=== PATIENT | male | born 1945 | race African-American/Black ===

== ENCOUNTER 2017-01-03 07:37 | Day surgery (SDC) | payer MEDICARE, OTHER ==
[~2017-01-03] VITALS: Ht 172.7 cm; Wt 86.2 kg
[~2017-01-03 07:37] MED LIST: AMLODIPINE10 MG OR; AMLODIPINE5 MG PO; ARTIF TEARS OU; CHLORTHALID25 MG PO; CIPRO500 MG OR; CRESTOR10 MG PO; CRESTOR20 MG PO; EC ASPIRIN325 MG PO; FLEET ENEMA RE; FLEXERIL OR; FOLIC ACID1 MG OR; GABAPENTIN300 MG PO; GABAPENTIN400 MG PO; GABAPENTIN600 MG OR; HUMULIN N1 ML SC; K-TAB20 MEQ PO; KEFLEX500 MG OR; LIPITOR80 M1 PO; LISINOPRIL20 MG PO; LISINOPRIL40 MG PO; MELOXICAM7.5 MG OR; MELOXICAM7.5 MG PO; MIRALAX3350 N1 PO; NEURONTIN600 MG PO; NOVOLIN 70/30 SC; POT CHLORIDE10 ME1 PO; SIMVASTATIN80 MG OR; TERAZOSIN10 MG OR; TERAZOSIN5 MG PO; TRAMADOL HCL50 MG PO; TREXALL10 MG OR; ULTRAM50 M1 OR; ULTRAM50 M1 PO; VITAMIN D31000 UNI1 PO; ZESTRIL40 MG OR; ZOFRAN4 MG/TAB PO
[2017-01-03 10:27] VITALS: BP 133/77
== END 2017-01-03 10:30 | disposition home or self-care (01) ==
LOC: ENDO 07:37
PROVIDERS: ATTEND Surgery
PROC: 0DJD8ZZ Inspection of Lower Intestinal Tract, Via Natural or Artificial Opening Endoscopic (ICD-10-PCS; principal; 2017-01-03)
DX: Z12.11 Encounter for screening for malignant neoplasm of colon (principal); Z86.010 Personal history of colon polyps

== ENCOUNTER 2019-06-05 17:47 | Emergency (ER) | payer MEDICARE ==
[2019-06-05] MEDS ORDERED: SILVADENE1 % EX (18:42)
[2019-06-05 18:55] VITALS: BP 165/85
== END 2019-06-05 18:55 | disposition home or self-care (01) ==
LOC: ED 17:47
DX: T60.3X1A Toxic effect of herbicides and fungicides, accidental (unintentional), initial encounter (principal); T22.611A Corrosion of second degree of right forearm, initial encounter; I10 Essential (primary) hypertension; E11.9 Type 2 diabetes mellitus without complications; Z86.73 Personal history of transient ischemic attack (TIA), and cerebral infarction without residual deficits

== ENCOUNTER 2020-01-10 09:38 | Emergency (ER) | payer OTHER, MEDICARE ==
[~2020-01-10] VITALS: Ht 172.7 cm; Wt 77.2 kg
[~2020-01-10 09:38] MED LIST changes: +SILVADENE1 % EX
[2020-01-10 10:59] LABS: URINE BILIRUBIN - DIPSTICK NEGATIVE (NEGATIVE); URINE BLOOD DIPSTICK NEGATIVE (NEGATIVE); URINE COLOR YELLOW; URINE GLUCOSE - DIPSTICK NEGATIVE (NEGATIVE); URINE KETONE NEGATIVE (NEGATIVE); URINE LEUK ESTERASE SMALL (NEGATIVE); URINE NITRITE - DIPSTICK NEGATIVE (Negative); URINE PROTEIN - DIPSTICK TRACE mg/dL (NEG-TRACE); URINE UROBILINOGEN - DIPSTICK 0.2 E.U./dL (0.2)
[2020-01-10 11:00] LABS: URINE WBC 20-50 WBC/hpf (0-5)
[2020-01-10 11:01] LABS: URINE BACTERIA FEW hpf; URINE EPITHELIAL CELLS FEW EPI/hpf (0-FEW)
[2020-01-10] MEDS ORDERED: CIPROFLOXACN500 MG PO (11:37)
[2020-01-10 11:49] VITALS: BP 148/83
== END 2020-01-10 11:49 | disposition home or self-care (01) | DRG 690 ==
LOC: ED 09:38
PROVIDERS: Emergency Medicine
DX: N39.0 Urinary tract infection, site not specified (principal); I10 Essential (primary) hypertension; E11.9 Type 2 diabetes mellitus without complications; Z20.2 Contact with and (suspected) exposure to infections with a predominantly sexual mode of transmission; Z86.73 Personal history of transient ischemic attack (TIA), and cerebral infarction without residual deficits

== ENCOUNTER 2020-02-22 20:10 | Emergency (ER) | payer OTHER, MEDICARE ==
[~2020-02-22] VITALS: Ht 172.7 cm; Wt 77.0 kg
[~2020-02-22 20:10] MED LIST changes: +CIPROFLOXACN500 MG PO
[2020-02-22 21:38] LABS: IMMATURE GRANULOCYTES 0.4 % (0.0-5.0); MEAN CELL VOLUME 87.7 fL CALC (80.0-100.0); MEAN CORPUSCULAR HGB 27.8 pG CALC (26.0-32.0); MEAN CORPUSCULAR HGB CONC 31.8 g/dL CAL (32.0-36.0); NEUT# 7.76 thou/uL (1.82-7.42); RED BLOOD COUNT 3.16 mill/uL (4.70-6.10); RED CELL DISTRI WIDTH 13.3 % (11.5-15.5)
[2020-02-22 21:39] LABS: ALBUMIN 3.6 g/dL (3.2-5.0); TOTAL PROTEIN 6.4 g/dL (6.3-8.2)
[2020-02-22 21:42] LABS: HEMATOCRIT 27.7 % (39.0-50.0); HEMOGLOBIN 8.8 g/dl (14.0-18.0)
[2020-02-22 21:44] LABS: BILIRUBIN, TOTAL 0.8 mg/dL (0.0-1.4); POTASSIUM 4.6 mmol/l (3.5-5.1)
[2020-02-22] MEDS ORDERED: GABAPENTIN100 MG PO (21:52)
[2020-02-22] MEDS ORDERED: CIALIS5 MG PO (21:53)
[2020-02-22] MEDS ORDERED: CALCIUM500 M5 PO (21:54)
[2020-02-22] MEDS ORDERED: TERAZOSIN5 MG PO (21:54)
[2020-02-22] MEDS ORDERED: K-TAB20 MEQ PO (21:55)
[2020-02-22] MEDS ORDERED: HYDRALAZINE50 MG PO (21:56)
[2020-02-22] MEDS ORDERED: LIPITOR80 M1 PO (21:56)
[2020-02-22] MEDS ORDERED: CORRECTOL100 MG PO (21:57)
[2020-02-22] MEDS ORDERED: CINACALCET HYDR30 MG PO (21:58)
[2020-02-22] MEDS ORDERED: ASPIRIN81 MG PO (21:58)
[2020-02-22] MEDS ORDERED: AMLODIPINE BESY10 MG PO (21:59)
[2020-02-22] MEDS ORDERED: TRAMADOL HCL50 MG PO (22:00)
[2020-02-22 22:09] LABS: TSH, 3RD GENERATION 1.1 uIU/mL (0.47 - 4.68)
[2020-02-22] MEDS ORDERED: TYLENOL # 31 TA1 PO (22:23)
[2020-02-22 22:40] VITALS: BP 152/72
== END 2020-02-22 23:03 | disposition home or self-care (01) | DRG 554 ==
LOC: ED 20:10
PROVIDERS: Family Medicine
DX: M89.49 Other hypertrophic osteoarthropathy, multiple sites (principal); E83.51 Hypocalcemia; D64.9 Anemia, unspecified; I10 Essential (primary) hypertension; E11.9 Type 2 diabetes mellitus without complications; Z86.73 Personal history of transient ischemic attack (TIA), and cerebral infarction without residual deficits; Z98.890 Other specified postprocedural states

== ENCOUNTER 2020-05-29 07:44 | Emergency (ER) | payer OTHER, MEDICARE ==
[~2020-05-29] VITALS: Ht 172.7 cm; Wt 90.0 kg
[~2020-05-29 07:44] MED LIST changes: +AMLODIPINE BESY10 MG PO; +ASPIRIN81 MG PO; +CALCIUM500 M5 PO; +CIALIS5 MG PO; +CINACALCET HYDR30 MG PO; +CORRECTOL100 MG PO; +GABAPENTIN100 MG PO; +HYDRALAZINE50 MG PO; +TYLENOL # 31 TA1 PO
[2020-05-29 07:50] VITALS: BP 163/74
[2020-05-29] MEDS ORDERED: FLEXERIL5 MG PO (09:04)
[2020-05-29] MEDS ORDERED: ULTRAM50 MG PO (09:04)
== END 2020-05-29 09:18 | disposition home or self-care (01) | DRG 552 ==
LOC: ED 07:44
DX: S16.1XXA Strain of muscle, fascia and tendon at neck level, initial encounter (principal); I69.998 Other sequelae following unspecified cerebrovascular disease; R20.2 Paresthesia of skin; I10 Essential (primary) hypertension; E11.9 Type 2 diabetes mellitus without complications; X58.XXXA Exposure to other specified factors, initial encounter

== ENCOUNTER 2020-08-25 10:04 | Observation (INO) | payer OTHER, MEDICARE ==
[~2020-08-25] VITALS: Ht 172.7 cm; Wt 82.0 kg
[2020-08-25] VITALS (11 sets, daily range): BP systolic 140–215; BP diastolic 80–95
[~2020-08-25 10:04] MED LIST changes: +FLEXERIL5 MG PO; +ULTRAM50 MG PO
--- NOTE | 2020-08-25 10:10 | NUR ---
TO ROOM VIA WHEELCHAIR, ACCOMPANIED BY .
[2020-08-25 10:49] LABS: HEMATOCRIT 33.4 % (39.0-50.0); HEMOGLOBIN 10.5 g/dl (14.0-18.0); IMMATURE GRANULOCYTES 0.2 % (0.0-5.0); MEAN CELL VOLUME 87.2 fL CALC (80.0-100.0); MEAN CORPUSCULAR HGB 27.4 pG CALC (26.0-32.0); MEAN CORPUSCULAR HGB CONC 31.4 g/dL CAL (32.0-36.0); NEUT# 7.61 thou/uL (1.82-7.42); RED BLOOD COUNT 3.83 mill/uL (4.70-6.10); RED CELL DISTRI WIDTH 13.5 % (11.5-15.5)
--- NOTE | 2020-08-25 11:00 | NUR ---
PT ARRIVED BACK FROM CT SCAN AOX3, NIH 1, NO DISTRESS NOTED, RESTING IN BED AND EDUCATED ON SIGNS AND SYMPTOMS TO REPORT, CALL LIGHT AT BEDSIDE
[2020-08-25 11:36] LABS: INTERNATIONAL NORMALIZED RATIO 1.1 RATIO (0.7-1.3)
[2020-08-25 11:39] LABS: ALBUMIN 3.6 g/dL (3.2-5.0); BILIRUBIN, TOTAL 0.8 mg/dL (0.0-1.4); CREATININE 2.1 mg/dL (0.7-1.3); TOTAL PROTEIN 6.7 g/dL (6.3-8.2)
[2020-08-25 11:45] LABS: POTASSIUM 3.6 mmol/l (3.5-5.1)
--- NOTE | 2020-08-25 12:10 | NUR ---
PT RESTING AND ALSO EDUCATED ON ADMISSION
[2020-08-25 12:32] LABS: URINE BILIRUBIN - DIPSTICK NEGATIVE (NEGATIVE); URINE BLOOD DIPSTICK NEGATIVE (NEGATIVE); URINE COLOR YELLOW; URINE GLUCOSE - DIPSTICK NEGATIVE (NEGATIVE); URINE KETONE NEGATIVE (NEGATIVE); URINE LEUK ESTERASE NEGATIVE (NEGATIVE); URINE PROTEIN - DIPSTICK 100 mg/dL (NEG-TRACE); URINE SPECIFIC GRAVITY 1.015; URINE UROBILINOGEN - DIPSTICK 0.2 E.U./dL (0.2)
[2020-08-25 12:35] LABS: URINE NITRITE - DIPSTICK NEGATIVE (Negative)
[2020-08-25] MEDS ORDERED: LIPITOR40 M1 PO (12:43)
[2020-08-25] MEDS ORDERED: GABAPENTIN100 MG PO (12:44)
[2020-08-25] MEDS ORDERED: METOPROL TAR25 MG PO (12:45)
[2020-08-25] MEDS ORDERED: HYDRALAZINE50 MG PO (12:46)
[2020-08-25] MEDS ORDERED: POTASSI19 XX (12:46)
[2020-08-25] MEDS ORDERED: TERAZOSIN5 MG PO (12:46)
--- NOTE | 2020-08-25 14:10 | NUR ---
PT ARRIVED TO ICU FROM THE ER WITH ER NURSE. PT ABLE TO SELF AMBULATE WITH CANE. PT VITALS TAKING BLOOD PRESSURE ELEVATED. NOTIFIED DR. ROBERTS PERCAUTIONS IN PLACE. WILL CONTINUE TO MONITOR.
--- NOTE | 2020-08-25 16:11 | NUR ---
PT IS STILL HAVING HIGH BLOOD PRESSURE PROVIDED PT WITH MEDICATIONS ADD TO HIGH MANAGE BLOOD PRESSURE WILL CONTINUE TO MONITOR WILL GIVE IV MED PRN IF NEED. FALL PERCAUTIONS STILL IN PLACE. PT WAS EDUCATED ON PLAN AND NEW MEDICATION WITH FAMILY PRESENT.
--- NOTE | 2020-08-25 17:46 | NUR ---
PT ARRIVED BACK FROM MRI BLOOD PRESSURE IS STILL ELEVATED PRN IV HYDRALAZINE BEFORE MRI EXAM. WILL CONTINUE TO MONITOR FOR AFFECT OF MEDICATION. FALL PERCAUTIONS IN PLACE. CALL LIGHT PADMINI MEZA.
--- NOTE | 2020-08-25 19:02 | NUR ---
PT AMBULATED TO THE BATHROOM WHEN HE STARTED TO FEEL DIZZY. BEFORE GETTING BACK UP PT STARTED VOMITING. RN ASKED FOR HELP TO HELP PT TO BED. BLOOD PRESSURE IS STILL ELEVATED. PROVIDER NOTIFIED. SHIFT CHANGE REPORT PROVIDED TO ON COMING RN. NEW ORDERED PROVIDED TO ON COMING RN.
--- NOTE | 2020-08-25 19:12 | NUR ---
RECEIVED REPORT. PT BEDRESTING. TALKING ON PHONE. B/P MACHINE NOT WORKING SO MANUAL B/P BEING TAKEN
--- NOTE | 2020-08-25 19:35 | NUR ---
REPORT INCLUDED SBP >200. RAILROAD DINING CAR STEWARDESS CALLED FOR RX. MANUAL B/P (BY ME) 192/90. LOPRESSOR 5MG SLOW IVP GIVEN-TOLERATED WELL. DENIES NAUSEA AT THIS TIOME. SAID WAS NAUSEATED WHEN DINNER TRAY HERE, BUT IS NO LONGER AND DECLINED ZOFRAN. IV HL. DENIES H/A. NIHSS 0
--- NOTE | 2020-08-25 20:30 | NUR ---
B/P SLIGHTLY HIGHER. HS MEDICATION GIEVN AT THIS TIME
--- NOTE | 2020-08-25 21:35 | NUR ---
SBP REMAINS >180. MEDICATION GIVEN RX. BEDRESTING WITH EYES CLOSED. RESP EVEN AND NONLABORED.
--- NOTE | 2020-08-25 22:15 | NUR ---
BEDRESTING. NIHSS 0.
[2020-08-26] VITALS (16 sets, daily range): BP systolic 148–186; BP diastolic 60–92
--- NOTE | 2020-08-26 | NUR ---
BEDRESTING. NO DISTRESS NOTED
--- NOTE | 2020-08-26 01:30 | NUR ---
N/C VOICED. DOZING AT THIS TIME. SBP BETEWWN 140 AND 182 MOST OF NIGHT
--- NOTE | 2020-08-26 02:53 | NUR ---
PT NOTED TO HAVE SECOND DEGREE TYPE 2 RHYTHM (WHILE HAVING A PERIOD OF NAUSEA AND VOMITING) FROM [id number]. CURRENTLY HAS RESUMED SR WITH 1ST DEGREE HEART BLOCK
--- NOTE | 2020-08-26 02:58 | NUR ---
YOSI OLIVEROS NOTIFIED OF THE CHANGE OF RHYTHM. NO NEW ORDERS AT THIS TIME
--- NOTE | 2020-08-26 04:26 | NUR ---
LAB HERE FOR BLOOD DRAW RX
[2020-08-26 04:54] LABS: HEMATOCRIT 37.2 % (39.0-50.0); HEMOGLOBIN 11.7 g/dl (14.0-18.0); MEAN CELL VOLUME 86.3 fL CALC (80.0-100.0); MEAN CORPUSCULAR HGB 27.1 pG CALC (26.0-32.0); MEAN CORPUSCULAR HGB CONC 31.5 g/dL CAL (32.0-36.0); RED BLOOD COUNT 4.31 mill/uL (4.70-6.10); RED CELL DISTRI WIDTH 13.5 % (11.5-15.5)
[2020-08-26 05:14] LABS: CHOLESTEROL HDL RATIO 2.9 (<4.4 (CALC)); CREATININE 1.9 mg/dL (0.7-1.3); POTASSIUM 3.3 mmol/l (3.5-5.1)
--- NOTE | 2020-08-26 06:08 | NUR ---
BEDRESTING. NO FURTHER RHYTHM CHANGE NOTED. RESP EVEN AND NONLABORED. NO DISTRESS NOTED
--- NOTE | 2020-08-26 06:45 | NUR ---
REPORT RECEIVED FROM DOUG ALEXANDER. CARE ASSUMED.
--- NOTE | 2020-08-26 06:55 | NUR ---
REPORT GIVEN TO BENJAMIN ECHEVARRIA. BEDRESTING
--- NOTE | 2020-08-26 07:40 | NUR ---
PT RESTING IN BED WITH EYES CLOSED. PT AROUSES TO VERBAL STIMULI. PT IS ALERT AND ORIENTED X3. SHIFT ASSESSMENT COMPLETED AT THIS TIME. IV PATENT X1. CALL LIGHT IN REACH. WILL CONTINUE TO MONITOR. NOTIFIED DR TEJEDA AND DR MAGANA OF IRREGULAR RHYTHM. NEW ORDERS RECEIVED.
--- NOTE | 2020-08-26 08:33 | NUR ---
DR TEJEDA AND DR MAGANA BOTH UPDATED ON LAB VALUES AND NEW ORDERS CARRIED OUT.
--- NOTE | 2020-08-26 09:01 | NUR ---
DR TEJEDA INTO SEE PATIENT AND DISCUSS PLAN OF CARE
--- NOTE | 2020-08-26 09:15 | NUR ---
Per discussion with RN, Kristy Spangler and Dr. Stout speech therapy order to be canceled.
--- NOTE | 2020-08-26 09:15 | NUR ---
DR MORGAN PLACED CALL TO DR FAIRBANKS WHO ACCEPTS PT FOR TRANSFER WILL PHONE [facility] FOR [facility]
--- NOTE | 2020-08-26 09:35 | NUR ---
PHONED [facility]. TRANSFER INITITATED. ALL INFO GIVEN. FACE SHEET FAXED, H&P FAXED, ORDER FAXED PER REQUEST.
--- NOTE | 2020-08-26 10:20 | NUR ---
PT EXTUBATED BY RT AT THIS TIME. OG PULLED BY RT AT THIS TIME WELL. PT TOLERATED WELL. VSS REMANS STABLE
--- NOTE | 2020-08-26 10:38 | NUR ---
PT RESTING IN BED AT THIS TIME. NO COMPLAINTS VOICED. NO DISTRESS NOTED. CALL LIGHT IN REACH. WILL CONTINUE TO MONITOR.
--- NOTE | 2020-08-26 12:00 | NUR ---
PT SITTING UP IN BED EATING LUNCH AND WATHING TV. CALL LIGHT IN REACH. WILL CONTINUE TO MONITOR.
--- NOTE | 2020-08-26 13:35 | NUR ---
rt at bedside for ekg. lab at bedside for stat troponin. ekg sent to dr lowery.
--- NOTE | 2020-08-26 14:06 | NUR ---
PT RESTING IN BED WATCHING TV. 2ND IV POTASSIUM INFUSING. SISTER AT BEDSIDE VISITING. CALL LIGHT IN REACH. WILL CONTINUE TO MONITOR.
--- NOTE | 2020-08-26 14:16 | NUR ---
DR TEJEDA NOTIFIED OF RESULTS OF TROPONIN
--- NOTE | 2020-08-26 16:00 | NUR ---
PT RESTING IN BED AWAKE AND WATCHING TV. RESP ARE EVEN AND UNLABORED. NO DISTRESS NOTED. CALL LIGHT IN REACH. WILL CONTINUE TO MONITOR.
--- NOTE | 2020-08-26 16:12 | NUR ---
melania called from [facility] transfer center for updated vital signs. still awaiting bed assignment
--- NOTE | 2020-08-26 18:07 | NUR ---
pt sitting up in bed watching tv. davina with [facility] phoned with bed assignment [phone] at [facility]. veronica phoned for transport. [facility]a [facility] patient notified. phoned pts sister as well with update.
--- NOTE | 2020-08-26 18:28 | NUR ---
REPORT CALLED TO MISHEL AT [facility] [phone].
--- NOTE | 2020-08-26 18:50 | NUR ---
[facility] HERE FOR TRANSPORT TO [facility] PT [facility]IC[facility]. PT ALERT. COOPERATIVE. PT USED URINAL PRIOR TO DEPARTURE AND AMBULATED 5 FEET TO STRETCHER. ALL BELONGINGS (INCLUDING SHOES, CLOTHES, CANE AND MEDICATION) WENT WITH PATIENT
--- NOTE | 2020-08-26 19:10 | NUR ---
D/C/TRANSFER TO [facility] VIA [facility] AT THIS TIME. PT THANKED STAFF FOR CARE
== END 2020-08-26 19:10 | DRG 149 ==
LOC: ED 10:04 → ED-I 11:35 → ED 12:22 → ICU 12:23
PROVIDERS: Family Medicine; ADMIT Internal Medicine; ATTEND Internal Medicine
DX: R42 Dizziness and giddiness (principal); N17.9 Acute kidney failure, unspecified; R11.0 Nausea; I49.5 Sick sinus syndrome; I12.9 Hypertensive chronic kidney disease with stage 1 through stage 4 chronic kidney disease, or unspecified chronic kidney disease; E11.22 Type 2 diabetes mellitus with diabetic chronic kidney disease; N18.9 Chronic kidney disease, unspecified; E78.5 Hyperlipidemia, unspecified; E89.2 Postprocedural hypoparathyroidism; Z86.73 Personal history of transient ischemic attack (TIA), and cerebral infarction without residual deficits; Z88.8 Allergy status to other drugs, medicaments and biological substances; Z20.822 Contact with and (suspected) exposure to COVID-19
CPT/HCPCS: J3475

== ENCOUNTER 2022-08-06 22:03 | Observation (INO) | payer OTHER, MEDICARE ==
[~2022-08-06] VITALS: Ht 172.7 cm; Wt 81.2 kg
[2022-08-06] VITALS (7 sets, daily range): BP systolic 127–146; BP diastolic 60–71
[~2022-08-06 22:03] MED LIST changes: +LIPITOR40 M1 PO; +METOPROL TAR25 MG PO; +POTASSI19 XX
--- NOTE | 2022-08-06 22:05 | NUR ---
PT ARRIVED VIA EMS. PT IS ALERT AND OX4. [facility]-15. PT IS ABLE TO SLOWLY ANSWER ALL QUESTIUONS APPROPRIATELY. "I COULD HEAR THE PHONE RINGING BUT COULDNT GET UP TO ANSWER IT"
[2022-08-06 22:34] LABS: BASO% 0.2 % (0-3); EOS% 0.1 % (0-8); HEMATOCRIT 33.1 % (39.0-50.0); HEMOGLOBIN 10.5 g/dl (14.0-18.0); IMMATURE GRANULOCYTES 0.1 % (0.0-5.0); LYMPH% 7.7 % (15-41); MEAN CELL VOLUME 89.7 fL CALC (80.0-100.0); MEAN CORPUSCULAR HGB 28.5 pG CALC (26.0-32.0); MEAN CORPUSCULAR HGB CONC 31.7 g/dL CAL (32.0-36.0); MONO% 11.5 % (2-13); NEUT# 6.8 thou/uL (1.82-7.42); NEUT% 80.4 % (42-76); RED BLOOD COUNT 3.69 mill/uL (4.70-6.10); RED CELL DISTRI WIDTH 13.4 % (11.5-15.5)
[2022-08-06 22:47] LABS: ALBUMIN 3.9 g/dL (3.2-5.0); POTASSIUM 3.9 mmol/l (3.5-5.1); TOTAL PROTEIN 6.8 g/dL (6.3-8.2)
[2022-08-06 22:48] LABS: BILIRUBIN, TOTAL 1.2 mg/dL (0.2-1.3); CREATININE 3.4 mg/dL (0.7-1.3)
[2022-08-07] VITALS (10 sets, daily range): BP systolic 117–154; BP diastolic 51–73
--- NOTE | 2022-08-07 00:01 | NUR ---
PT RESTING. DENIES DISTRESS.
--- NOTE | 2022-08-07 01:00 | NUR ---
PT RESTING. NAD.
[2022-08-07 01:44] LABS: URINE BILIRUBIN - DIPSTICK NEGATIVE (NEGATIVE); URINE BLOOD DIPSTICK SMALL (NEGATIVE); URINE COLOR YELLOW; URINE GLUCOSE - DIPSTICK 100 mg/dL (NEGATIVE); URINE KETONE TRACE mg/dL (NEGATIVE); URINE LEUK ESTERASE NEGATIVE (NEGATIVE); URINE PROTEIN - DIPSTICK 30 mg/dL (NEG-TRACE); URINE SPECIFIC GRAVITY 1.015
[2022-08-07 01:47] LABS: URINE NITRITE - DIPSTICK NEGATIVE (Negative)
[2022-08-07 01:55] LABS: URINE SQUAMOUS EPITHELIAL CELL FEW EPI/hpf (0-FEW)
[2022-08-07 01:56] LABS: URINE BACTERIA FEW hpf
--- NOTE | 2022-08-07 03:06 | NUR ---
PT ARRIVED TO [facility] ROOM 273. PT A/OX3 BUT SLIGHTLY OFF. ANSWERS QUIESTIONS APPROPRIATE BUT SLOW. RESPIRATIONS EVEN AND UNLABORED ON ROOM AIR. LUNG SOUNDS CLEAR. HEART RHYTHM NORMAL WITH TELE IN PLACE, PACER NOTED. BOWEL SOUNDS ACTIVE LBM 08/06/22. PULSES STRONG. #18G RFA INFUSING WITH IVF PER ORDER, SITE PATENT. SCRATCH NOTED TO BACK, PT STATES HE FELL 3 DAYS AGO. PT DOES LIVE AT HOME BY HIMSELF. PT DENIES OF ANY ADDITIONAL NEEDS. ALL SAFTEY PRECAUTIONS ARE IN PLACE WITH CALL LIGHT IN REACH. BED ALARM ACTIVE. ISOLATION PRECAUTIONS ARE IN PLACE.
--- NOTE | 2022-08-07 03:24 | NUR ---
Patient vital signs taken, Temp 97.5, HR 71, RR 19, BP 129/67, Sp02 95. Patient glucose was checked 183 and the nurse was notified.
--- NOTE | 2022-08-07 10:43 | NUR ---
RECIEVED BEDSIDE REPORT, PATIENT A & O X 3, NO S/S OF DISTRESS, IN INTACT, FLUIDS RUNNING AT 125ML/HR, SBA TO USE URINAL AT BEDSIDE, PATIENT SAFETY MEASURES IN PLACE.
[2022-08-07 10:50] LABS: CREATININE 2.8 mg/dL (0.7-1.3); POTASSIUM 3.4 mmol/l (3.5-5.1)
--- NOTE | 2022-08-07 10:58 | NUR ---
called dr wong at [phone] left a message on his phone to call back at for the consult on this pt.
--- NOTE | 2022-08-07 12:00 | NUR ---
PATIENT IN BED, USES CALL LIGHT APPROPIATELY, NO COMPLAINTS OF PAIN OR SOB, ROOM IS COOL ENOUGH, COLD WATER GIVEN, SAFETY MEASURES IN PLACE, NO S/S OF DISTRESS.
--- NOTE | 2022-08-07 16:55 | NUR ---
PATIENT RESTING IN BED, APPEARS TO BE SLEEPING, NO S/S OF DISTRESS, PATIENT SAFETY PRECAUTIONS IN PLACE, MOTHER CALLED FOR UPDATE AND STATED SHE WOULD BE HERE IN A HOUR AND A HALF.
--- NOTE | 2022-08-07 17:01 | NUR ---
PROVIDER CONTACTED FOR VARIOUS MEDICATIONS, ORDERS RECIEVED, PATIENT HAS NO S/S OF DISTRESS, NO SOB, PATIENT SAFETY MEASURES IN PLACE.
--- NOTE | 2022-08-07 20:00 | NUR ---
RECEIVED REPORT FROM DAYSHIFT NURSE. PT IS LAYING IN SEMIFOWLERS POSITION. PT DENIES OF PAIN OR DISCOMFORT. ASSESSMENT COMPLETE PT ACKNOWLEGED OF NURSE CHANGING. CALL LIGHT WITHIN REACH AND SAFETY PRECAUTIONS IN PLACE.
[2022-08-08] VITALS (8 sets, daily range): BP systolic 129–157; BP diastolic 56–75
--- NOTE | 2022-08-08 | NUR ---
PT IS IN BED SLEEPING COMFORTABLY. PT SHOWS NO SIGNS OF PAIN OR DITRESS AT THIS MOMENT. CALL LIGHT WITHIN REACH AND SAFETY PRECAUTIONS IN PLACE.
--- NOTE | 2022-08-08 03:48 | NUR ---
PT CALLED, TEARFUL C/O PAIN TO R HIP AND BACK. PT STATES HE HAD FALLEN AT HOME A FEW DAYS PRIOR TO ADMIT BUT DID NOT SEEK MEDICAL ATTENTION, HE DID FALL ONTO HIS R HIP. MD NOTIFIED AND ORDERS OBTAINED. CALL LIGHT IN REACH,CONTINUE TO MONITOR.
--- NOTE | 2022-08-08 04:22 | NUR ---
WORKFORCE PLANNING ANALYST AT BEDSIDE FOR HIP XRAY, PT TEARFUL. ONCE COMPLETED PT MEDICATED FOR PAIN. CALL LIGHT IN REACH,CONTINUE TO MONITOR.
[2022-08-08 05:27] LABS: BASO% 0.3 % (0-3); EOS% 0.3 % (0-8); HEMATOCRIT 34.5 % (39.0-50.0); HEMOGLOBIN 11.1 g/dl (14.0-18.0); IMMATURE GRANULOCYTES 0.1 % (0.0-5.0); LYMPH% 12.6 % (15-41); MEAN CELL VOLUME 88.2 fL CALC (80.0-100.0); MEAN CORPUSCULAR HGB 28.4 pG CALC (26.0-32.0); MEAN CORPUSCULAR HGB CONC 32.2 g/dL CAL (32.0-36.0); MONO% 11.5 % (2-13); NEUT# 5.44 thou/uL (1.82-7.42); NEUT% 75.2 % (42-76); RED BLOOD COUNT 3.91 mill/uL (4.70-6.10); RED CELL DISTRI WIDTH 13.3 % (11.5-15.5)
[2022-08-08 05:40] LABS: ALBUMIN 3.3 g/dL (3.2-5.0); CREATININE 2.2 mg/dL (0.7-1.3); MAGNESIUM 1.5 mg/dL (1.6-2.3); POTASSIUM 3.2 mmol/l (3.5-5.1); TOTAL PROTEIN 6.1 g/dL (6.3-8.2)
[2022-08-08 05:52] LABS: BILIRUBIN, TOTAL 0.7 mg/dL (0.2-1.3)
--- NOTE | 2022-08-08 08:00 | NUR ---
GOT REPORT FROM POULTRY FARM SUPERVISOR NURSE. PATIENT ASSESSED, AOX4, PATIENT DENIES ANY DISTRESS. IV IS PATENT. CALL LIGHT WITH IN REACH. ADVISED TO CALL IF NEEDING ANYTHING. PATIENT VERBALIZED UNDERSTANDING.
--- NOTE | 2022-08-08 12:00 | NUR ---
PATIENT IS LAYING IN BED. NO COMPLAINTS AT THIS TIME. ADVISED TO CALL IF NEEDING ANYTHING.
--- NOTE | 2022-08-08 16:00 | NUR ---
PATIENT IS LAYING IN BED. NO COMPLAINTS AT THIS TIME BUT DID REQUEST THAT LATER TODAY IF HE COULD TAKE A SHOWER OR WASH UP. ADVISED TO CALL IF NEEDING ANYTHING.
--- NOTE | 2022-08-08 19:28 | NUR ---
PT RESTING IN BED, NO SIGNS OF DISTRESS NOTED, RESP EVEN AND UNLABORED. PT CALLED FOR ASSISTANCE TO THE BATHROOM. ASSISTED PT TO BATHROOM, DUO DERM REMOVED FROM PT'S BACK, AREA SAME YESTERDAY, SUGGESTED LEAVING OPEN TO AIR, PT AGREED. ASSISTED PT BACK TO BED, ASSESSMENT COMPLETED, IS AT BEDSIDE, ENCOURAGED IT'S USE. PT STATES RELIEF FROM TRAMADOL. CALL LIGHT IN REACH,CONTINUE TO MONITOR.
--- NOTE | 2022-08-09 | NUR ---
PT RESTING IN BED, NO SIGNS OF DISTRESS NOTED, RESP EVEN AND UNLABORED. CALL LIGHT IN REACH, CONTINUE TO MONITOR.
[2022-08-09 00:54] VITALS: BP 140/64
--- NOTE | 2022-08-09 04:30 | NUR ---
PT RESTING IN BED NO SIGNS OF DISTRESS NOTED, RESP EVEN AND UNLABORED. PT EASILY AROUSED TO VERBAL STIMULI, DISCUSSED DAILY WT, WT OBTAINED, PT TOLERATED WELL. PT C/O PAIN TO R HIP. PT MEDICATED PER MAY, CALL LIGHT IN REACH,CONTINUE TO MONITOR.
[2022-08-09 04:46] VITALS: BP 155/69
[2022-08-09 06:54] VITALS: BP 139/60
[2022-08-09 08:02] LABS: BASO% 0.2 % (0-3); EOS% 1.2 % (0-8); HEMATOCRIT 33.8 % (39.0-50.0); HEMOGLOBIN 10.6 g/dl (14.0-18.0); LYMPH% 13.5 % (15-41); MEAN CELL VOLUME 91.1 fL CALC (80.0-100.0); MEAN CORPUSCULAR HGB 28.6 pG CALC (26.0-32.0); MEAN CORPUSCULAR HGB CONC 31.4 g/dL CAL (32.0-36.0); MONO% 10.5 % (2-13); NEUT# 4.27 thou/uL (1.82-7.42); NEUT% 74.6 % (42-76); RED BLOOD COUNT 3.71 mill/uL (4.70-6.10); RED CELL DISTRI WIDTH 13.3 % (11.5-15.5)
[2022-08-09 08:20] LABS: CREATININE 1.9 mg/dL (0.7-1.3); MAGNESIUM 1.8 mg/dL (1.6-2.3); POTASSIUM 3.4 mmol/l (3.5-5.1); TOTAL PROTEIN 5.6 g/dL (6.3-8.2)
[2022-08-09 08:21] LABS: BILIRUBIN, TOTAL 0.4 mg/dL (0.2-1.3)
--- NOTE | 2022-08-09 08:32 | NUR ---
PT RESTING EATING BREAKFAST. ASSESSMENT COMPLETED. UPDATED PT IN CURRENT PLAN OF CARE. PT INDICATED UNDERSTANDING. TELE MONITOR IN PLACE, CONTINOUS MONITORING PER ED. FALL/SAFTEY PRECAUTIONIN PLACE. CALL LIGHT WITHIN REACH.
[2022-08-09 10:55] VITALS: BP 142/73
[2022-08-09] MEDS ORDERED: LANTUS SOL100 UNIT/M SC (11:28)
--- NOTE | 2022-08-09 12:00 | NUR ---
PT RESTING IN BED EATING LUNCH. NO DISTRESS NOTED. BREATHING EVEN AND UNLABORED. FALL/SAFTEY PRECAUTION IN PLACE. CALL LIGHT WITHIN REACH
--- NOTE | 2022-08-09 15:58 | NUR ---
Discharge instructions given. Patient verbalizes understanding of same. Discharged in stable condition via Wheelchair to Home with staff. All belongings sent with pt.
--- NOTE | 2022-08-09 15:59 | NUR ---
PT RESTING IN ROOM AWAIING TAXT SERIVCE FOR BAD CLOTH CHECKER. STATES NO OTHER NEEDS AT THIS TIME. FALL/SAFTEY PRECAUTIONIN PLACE. CALL LIGHT WITHIN REACH.
== END 2022-08-09 15:58 | disposition home health service (06) | DRG 178 ==
LOC: ED 22:03 → ED-I 23:39 → ED 08-07 00:29 → MS2 08-07 00:30
PROVIDERS: Emergency Medicine; Internal Medicine Nephrology; ADMIT Internal Medicine; ATTEND Internal Medicine
DX: U07.1 COVID-19 (principal); E87.1 Hypo-osmolality and hyponatremia; N17.9 Acute kidney failure, unspecified; N25.81 Secondary hyperparathyroidism of renal origin; M62.82 Rhabdomyolysis; E86.0 Dehydration; E86.9 Volume depletion, unspecified; E83.42 Hypomagnesemia; I12.9 Hypertensive chronic kidney disease with stage 1 through stage 4 chronic kidney disease, or unspecified chronic kidney disease; E11.22 Type 2 diabetes mellitus with diabetic chronic kidney disease; N18.32 Chronic kidney disease, stage 3b; D63.1 Anemia in chronic kidney disease; E78.5 Hyperlipidemia, unspecified; Z86.73 Personal history of transient ischemic attack (TIA), and cerebral infarction without residual deficits
CPT/HCPCS: J1756; J3475

== ENCOUNTER 2022-09-12 02:19 | Observation (INO) | payer OTHER, MEDICARE ==
[~2022-09-12] VITALS: Ht 172.7 cm; Wt 81.0 kg
[~2022-09-12 02:19] MED LIST changes: +LANTUS SOL100 UNIT/M SC
[2022-09-12 05:54] LABS: BASO% 0.3 % (0-3); EOS% 0.6 % (0-8); HEMATOCRIT 36.1 % (39.0-50.0); HEMOGLOBIN 11.5 g/dl (14.0-18.0); IMMATURE GRANULOCYTES 0.1 % (0.0-5.0); LYMPH% 6.7 % (15-41); MEAN CELL VOLUME 87.8 fL CALC (80.0-100.0); MEAN CORPUSCULAR HGB CONC 31.9 g/dL CAL (32.0-36.0); MONO% 5.1 % (2-13); NEUT# 13.45 thou/uL (1.82-7.42); NEUT% 87.2 % (42-76); RED BLOOD COUNT 4.11 mill/uL (4.70-6.10); RED CELL DISTRI WIDTH 13.2 % (11.5-15.5)
[2022-09-12 05:57] VITALS: BP 139/59
[2022-09-12 06:07] LABS: POTASSIUM 3.8 mmol/l (3.5-5.1)
[2022-09-12 06:10] LABS: ALBUMIN 4.1 g/dL (3.2-5.0); BILIRUBIN, TOTAL 0.8 mg/dL (0.2-1.3); CREATININE 3.1 mg/dL (0.7-1.3); TOTAL PROTEIN 7.4 g/dL (6.3-8.2)
[2022-09-12 07:07] VITALS: BP 117/53
[2022-09-12 09:56] VITALS: BP 146/66
[2022-09-12 13:30] LABS: URINE BILIRUBIN - DIPSTICK NEGATIVE (NEGATIVE); URINE BLOOD DIPSTICK NEGATIVE (NEGATIVE); URINE COLOR YELLOW; URINE GLUCOSE - DIPSTICK 100 mg/dL (NEGATIVE); URINE KETONE TRACE mg/dL (NEGATIVE); URINE LEUK ESTERASE NEGATIVE (NEGATIVE); URINE PROTEIN - DIPSTICK 30 mg/dL (NEG-TRACE); URINE SPECIFIC GRAVITY 1.015; URINE UROBILINOGEN - DIPSTICK 0.2 E.U./dL (0.2)
[2022-09-12 13:34] LABS: URINE EPITHELIAL CELLS FEW EPI/hpf (0-FEW); URINE MUCUS FEW hpf (NONE-FEW); URINE NITRITE - DIPSTICK NEGATIVE (Negative)
[2022-09-12 15:12] VITALS: BP 132/51
[2022-09-12 19:37] VITALS: BP 137/68
[2022-09-13 04:52] VITALS: BP 151/68
[2022-09-13 06:06] LABS: HEMATOCRIT 34.4 % (39.0-50.0); MEAN CORPUSCULAR HGB 28.1 pG CALC (26.0-32.0); RED BLOOD COUNT 3.91 mill/uL (4.70-6.10); RED CELL DISTRI WIDTH 13.5 % (11.5-15.5)
[2022-09-13 06:19] LABS: ALBUMIN 3.3 g/dL (3.2-5.0); CREATININE 2.3 mg/dL (0.7-1.3); MAGNESIUM 1.7 mg/dL (1.6-2.3); POTASSIUM 3.4 mmol/l (3.5-5.1)
[2022-09-13 06:58] VITALS: BP 159/63
[2022-09-13 08:21] VITALS: BP 157/66
[2022-09-13 08:24] VITALS: BP 157/66
[2022-09-13] MEDS ORDERED: TAMSULOSIN HCL0.4 MG PO (10:47)
[2022-09-13] MEDS ORDERED: CIPROFLOXACN500 MG PO (10:55)
[2022-09-14] MEDS ORDERED: VITAMIN D-32000 UNI1 PO (14:01)
[2022-09-14] MEDS ORDERED: SENNA/DSS1 TAB PO (14:03)
[2022-09-14] MEDS ORDERED: TERAZOSIN5 MG PO (14:04)
[2022-09-14] MEDS ORDERED: TRAMADOL HCL50 MG PO (14:05)
[2022-09-14] MEDS ORDERED: ASPIRINCHW 81MG PO (14:05)
[2022-09-14] MEDS ORDERED: ROCALTROL0.5 MC1 PO (14:06)
[2022-09-14] MEDS ORDERED: AMLODIPINE BESY10 MG PO (14:06)
[2022-09-14] MEDS ORDERED: BUMETANIDE2 MG PO (14:08)
[2022-09-14] MEDS ORDERED: CARVEDILOL25 MG PO (14:08)
== END 2022-09-13 15:17 | disposition home health service (06) | DRG 696 ==
LOC: ED 02:19 → ED-I 04:15 → ED 04:25 → MS2 04:26
PROVIDERS: Emergency Medicine; ADMIT Internal Medicine; ATTEND Internal Medicine
PROC: 0T9B70Z Drainage of Bladder with Drainage Device, Via Natural or Artificial Opening (ICD-10-PCS; principal; 2022-09-12)
DX: R33.9 Retention of urine, unspecified (principal); N17.9 Acute kidney failure, unspecified; K59.00 Constipation, unspecified; I10 Essential (primary) hypertension; E11.9 Type 2 diabetes mellitus without complications; Z86.73 Personal history of transient ischemic attack (TIA), and cerebral infarction without residual deficits; Z95.0 Presence of cardiac pacemaker; Z79.4 Long term (current) use of insulin

== ENCOUNTER 2022-09-14 11:38 | Observation (INO) | payer OTHER, MEDICARE ==
[~2022-09-14] VITALS: Ht 172.7 cm; Wt 76.4 kg
[2022-09-14] VITALS (12 sets, daily range): BP systolic 142–185; BP diastolic 55–95
[~2022-09-14 11:38] MED LIST changes: +TAMSULOSIN HCL0.4 MG PO
[2022-09-14 13:14] LABS: BASO% 0.3 % (0-3); EOS% 0.5 % (0-8); HEMATOCRIT 35.1 % (39.0-50.0); HEMOGLOBIN 11.1 g/dl (14.0-18.0); IMMATURE GRANULOCYTES 0.2 % (0.0-5.0); LYMPH% 8.2 % (15-41); MEAN CELL VOLUME 88.4 fL CALC (80.0-100.0); MEAN CORPUSCULAR HGB CONC 31.6 g/dL CAL (32.0-36.0); MONO% 5.8 % (2-13); NEUT# 9.23 thou/uL (1.82-7.42); RED BLOOD COUNT 3.97 mill/uL (4.70-6.10); RED CELL DISTRI WIDTH 13.4 % (11.5-15.5)
[2022-09-14 13:16] LABS: URINE BILIRUBIN - DIPSTICK NEGATIVE (NEGATIVE); URINE BLOOD DIPSTICK LARGE (NEGATIVE); URINE COLOR YELLOW; URINE GLUCOSE - DIPSTICK 100 mg/dL (NEGATIVE); URINE KETONE TRACE mg/dL (NEGATIVE); URINE LEUK ESTERASE NEGATIVE (NEGATIVE); URINE PH 5.5 (4.5-8.0); URINE PROTEIN - DIPSTICK TRACE mg/dL (NEG-TRACE); URINE SPECIFIC GRAVITY 1.015; URINE UROBILINOGEN - DIPSTICK 0.2 E.U./dL (0.2)
[2022-09-14 13:18] LABS: URINE NITRITE - DIPSTICK NEGATIVE (Negative)
[2022-09-14 13:21] LABS: ALBUMIN 3.7 g/dL (3.2-5.0); BILIRUBIN, TOTAL 1.3 mg/dL (0.2-1.3); POTASSIUM 3.5 mmol/l (3.5-5.1); TOTAL PROTEIN 6.6 g/dL (6.3-8.2)
[2022-09-14 13:28] LABS: URINE RBC 25-50 RBC/hpf (0-5)
[2022-09-14] MEDS ORDERED: VITAMIN D-32000 UNI1 PO (14:01)
[2022-09-14] MEDS ORDERED: SENNA/DSS1 TAB PO (14:03)
[2022-09-14] MEDS ORDERED: TERAZOSIN5 MG PO (14:04)
[2022-09-14] MEDS ORDERED: TRAMADOL HCL50 MG PO (14:05)
[2022-09-14] MEDS ORDERED: ASPIRINCHW 81MG PO (14:05)
[2022-09-14] MEDS ORDERED: AMLODIPINE BESY10 MG PO (14:06)
[2022-09-14] MEDS ORDERED: ROCALTROL0.5 MC1 PO (14:06)
[2022-09-14] MEDS ORDERED: BUMETANIDE2 MG PO (14:08)
[2022-09-14] MEDS ORDERED: CARVEDILOL25 MG PO (14:08)
[2022-09-15] VITALS (7 sets, daily range): BP systolic 156–172; BP diastolic 58–86
[2022-09-15 05:56] LABS: HEMOGLOBIN 11.4 g/dl (14.0-18.0); MEAN CELL VOLUME 87.3 fL CALC (80.0-100.0); MEAN CORPUSCULAR HGB 28.4 pG CALC (26.0-32.0); MEAN CORPUSCULAR HGB CONC 32.6 g/dL CAL (32.0-36.0); RED BLOOD COUNT 4.01 mill/uL (4.70-6.10); RED CELL DISTRI WIDTH 13.1 % (11.5-15.5)
[2022-09-15 06:17] LABS: ALBUMIN 3.4 g/dL (3.2-5.0); BILIRUBIN, TOTAL 1.2 mg/dL (0.2-1.3); CREATININE 1.9 mg/dL (0.7-1.3); MAGNESIUM 1.7 mg/dL (1.6-2.3); POTASSIUM 2.8 mmol/l (3.5-5.1); TOTAL PROTEIN 6.5 g/dL (6.3-8.2)
== END 2022-09-15 14:49 | disposition home health service (06) | DRG 696 ==
LOC: ED 11:38 → ED-I 15:53 → MS2 17:49 → ED 17:49 → MS2 09-15 14:49
PROVIDERS: Family Medicine; ADMIT Internal Medicine; ATTEND Internal Medicine
PROC: 0T2BX0Z Change Drainage Device in Bladder, External Approach (ICD-10-PCS; principal; 2022-09-14)
DX: R31.9 Hematuria, unspecified (principal); N40.1 Benign prostatic hyperplasia with lower urinary tract symptoms; N13.8 Other obstructive and reflux uropathy; R33.8 Other retention of urine; E87.6 Hypokalemia; I10 Essential (primary) hypertension; E11.9 Type 2 diabetes mellitus without complications; E21.3 Hyperparathyroidism, unspecified; Z86.73 Personal history of transient ischemic attack (TIA), and cerebral infarction without residual deficits; Z95.0 Presence of cardiac pacemaker; Z79.4 Long term (current) use of insulin; Z96.0 Presence of urogenital implants

== ENCOUNTER 2022-09-15 20:28 | Emergency (ER) | payer OTHER, MEDICARE ==
[~2022-09-15] VITALS: Ht 172.7 cm; Wt 77.0 kg
[2022-09-15] VITALS (8 sets, daily range): BP systolic 123–154; BP diastolic 66–79
[~2022-09-15 20:28] MED LIST changes: +ASPIRINCHW 81MG PO; +BUMETANIDE2 MG PO; +CARVEDILOL25 MG PO; +ROCALTROL0.5 MC1 PO; +SENNA/DSS1 TAB PO; +VITAMIN D-32000 UNI1 PO
[2022-09-15 21:47] LABS: BASO% 0.2 % (0-3); EOS% 2.2 % (0-8); HEMATOCRIT 32.4 % (39.0-50.0); HEMOGLOBIN 10.4 g/dl (14.0-18.0); IMMATURE GRANULOCYTES 0.2 % (0.0-5.0); MEAN CELL VOLUME 87.3 fL CALC (80.0-100.0); MEAN CORPUSCULAR HGB CONC 32.1 g/dL CAL (32.0-36.0); MONO% 9.6 % (2-13); NEUT# 8.26 thou/uL (1.82-7.42); NEUT% 78.8 % (42-76); RED BLOOD COUNT 3.71 mill/uL (4.70-6.10); RED CELL DISTRI WIDTH 13.1 % (11.5-15.5)
[2022-09-15 21:48] LABS: URINE BILIRUBIN - DIPSTICK NEGATIVE (NEGATIVE); URINE BLOOD DIPSTICK LARGE (NEGATIVE); URINE COLOR BROWN; URINE GLUCOSE - DIPSTICK 250 mg/dL (NEGATIVE); URINE KETONE 15 mg/dL (NEGATIVE); URINE LEUK ESTERASE MODERATE (NEGATIVE); URINE NITRITE - DIPSTICK POSITIVE (Negative); URINE PH 6.5 (4.5-8.0); URINE PROTEIN - DIPSTICK >=300 mg/dL (NEG-TRACE); URINE SPECIFIC GRAVITY 1.025
[2022-09-15 21:54] LABS: URINE BACTERIA FEW hpf; URINE RBC TNTC RBC/hpf (0-5)
== END 2022-09-15 22:39 | disposition home or self-care (01) | DRG 696 ==
LOC: ED 20:28
PROVIDERS: Family Medicine
DX: R31.9 Hematuria, unspecified (principal); N40.1 Benign prostatic hyperplasia with lower urinary tract symptoms; N13.8 Other obstructive and reflux uropathy; R33.8 Other retention of urine; E11.9 Type 2 diabetes mellitus without complications; I10 Essential (primary) hypertension; Z86.73 Personal history of transient ischemic attack (TIA), and cerebral infarction without residual deficits; Z79.4 Long term (current) use of insulin; Z96.0 Presence of urogenital implants

== ENCOUNTER → 2022-11-19 | Day surgery (SDC) | payer MEDICARE ==
[~2022-11-19] VITALS: Ht 172.7 cm; Wt 82.1 kg
[~2022-11-19] MED LIST changes: +COZAAR25 MG PO; +POTASSI19 PO; -POTASSI19 XX
[2022-11-19 07:47] VITALS: BP 173/59
== END | disposition home or self-care (01) ==
LOC: ORM 06:47
PROVIDERS: ATTEND Urology
DX: N40.1 Benign prostatic hyperplasia with lower urinary tract symptoms (principal); R33.8 Other retention of urine; I10 Essential (primary) hypertension; I25.10 Atherosclerotic heart disease of native coronary artery without angina pectoris; E11.9 Type 2 diabetes mellitus without complications; E03.9 Hypothyroidism, unspecified; E78.5 Hyperlipidemia, unspecified; Z79.4 Long term (current) use of insulin; Z86.73 Personal history of transient ischemic attack (TIA), and cerebral infarction without residual deficits; Z53.9 Procedure and treatment not carried out, unspecified reason
CPT/HCPCS: J1956